=== PATIENT | female | born 1965 | race Caucasian/White ===

== ENCOUNTER 2023-08-29 15:07 | Emergency (ER) | payer OTHER, SELFPAY ==
--- NOTE | ~2023-08-29 | CT_ITS ---
EXAMINATION: CT abdomen pelvis w con DATE: 08/29/2023 18:04 INDICATION: LUQ pain TECHNIQUE: Computed tomography (CT) of the abdomen and pelvis was performed with 100 mL Omnipaque-350 intravenous contrast. Automated exposure control and iterative reconstruction technique were employe d. The dose-length product was 317.21 mGy-cm. COMPARISON: None. FINDINGS: Lower thorax: Unremarkable Liver: Normal. Biliary/Gallbladder: Gallbladder is normal. No bile duct dilation. Pancreas: No mass or duct dilation. Spleen: Normal. Adrenals:No mass. Kidneys: No suspicious mass, obstructing stone, or hydronephrosis. GI tract: Mild distal esophageal and gastric wall edema as can be seen with esophagitis/gastritis. Faust bmucosal fat in the left colon. Multiple loops of dilated small bowel in the left upper quadrant with out a single well-defined transition point. Uniform bowel wall enhancement without thickening. Normal appendix. Mesentery/Peritoneum: No ascites, mass, or free air. Retroperitoneum: No mass. Pelvis: Wall edema and inflammatory change in a poorly distended urinary bladder. Normal uterus and o varies. Soft Tissues: Multiple uncomplicated appearing fat-containing and small bowel containing ventral memo ias. Bones: No acute osseous finding. IMPRESSION: Mild esophagitis/gastritis. Dilated small bowel in the left upper quadrant may represent obstruction or ileus. Urinary bladder wall edema may represent cystitis in the appropriate clinical context. Reviewed, dictated and finalized at location [facility]. IMPRESSION: Mild esophagitis/gastritis. Dilated small bowel in the left upper quadrant may represent obstruction or ile us. Urinary bladder wall edema may represent cystitis in the appropriate clinical c ontext.
[2023-08-29 15:39] VITALS: BP 114/71; PULSE 69; RESP 18; TEMP 36.3; O2SAT 99
[2023-08-29 15:55] LABS: Basophils Percent Auto 0.3 % (0.2-1.2); Eosinophils Absolute Auto 0.1 K/mm3 (0-0.3); Eosinophils Percent Auto 1.5 % (0-4.4); Hematocrit 40.3 % (37.0-47.0); Hemoglobin 12.7 g/dL (12.0-15.0); Lymphocytes Absolute Auto 1.21 K/mm3 (0.9-3.2); Mean Corpuscular HGB Conc 31.5 g/dl (32-36); Mean Corpuscular Hemoglobin 32.9 pg (26-34); Mean Corpuscular Volume 104.4 fl (80-100); Monocytes Absolute Auto 0.4 K/mm3 (0.1-0.6); Monocytes Percent Auto 6.9 % (2.6-8.5); Neutrophils Absolute Auto 4.3 K/mm3 (1.3-6.7); Neutrophils Percent Auto 71.3 % (45.5-73.1); Platelet Count Result 266 k/mm3 (150-375); Red Blood Count 3.86 M/mm3 (4.2-5.4); Red Cell Distribution Width 14.4 % (11.5-14.5); White Blood Count 6.1 K/mm3 (4.5-10.0)
[2023-08-29 16:05] LABS: Alanine Aminotransferase 29 U/L (6-35); Albumin Level 4.7 g/dL (3.5-5.1); Alkaline Phosphatase 71 U/L (38-126); Anion Gap 7 mmol/L (8-16); Aspartate Amino Transferase 43 U/L (14-36); Bilirubin,Total 0.3 mg/dL (0.2-1.3); Blood Urea Nitrogen 18 mg/dL (7-17); Calcium 9.3 mg/dL (8.4-10.2); Carbon Dioxide 29 mmol/L (22-30); Chloride 110 mmol/L (98-107); Estimated Glomerular Filt Rate > 60; Glucose 111 mg/dL (65-110); Potassium 4.7 mmol/L (3.4-5.0); Sodium 146 mmol/L (137-145)
[2023-08-29] MEDS: ONDANSETRON INJ 4 MG/2 ML VIAL IV PUSH (17:32)
[2023-08-29 17:34] VITALS: BP 106/68; PULSE 60; RESP 17; O2SAT 98
[2023-08-29 17:46] LABS: Appearance Urine Cloudy (Clear); Bacteria Urine 1+ /hpf; Bilirubin Urine 1+ (Negative); Blood Urine 2+ (Negative); Color Urine Dark Yellow (Yellow); Glucose Urine UA Negative (Negative); Hyaline Casts Urine Present /lpf; Ketones Urine Trace mg/dL (Negative); Leukocyte Esterase Ur 1+ LEU/UL (Negative); Nitrate Urine Negative (Negative); Non Pathogenic Casts >20; Protein Urine 1+ mg/dL (Negative); Specific Grav Ur 1.023 (1.001-1.035); Squamous Epithelial Cell Urine Few /hpf (Few); WBC Urine 0-5 /hpf; pH Urine 6.5 (5.0-9.0)
[2023-08-29 17:47] LABS: Add Urine Microscopic? YES
--- NOTE | 2023-08-29 18:09 | ED.ABDPAIN ---
HPI - Abdominal Pain General Chief Complaint: Abdominal Pain Stated Complaint: abd pain Time Seen by Provider: 08/29/23 17:12 History of Present Illness HPI narrative: Patient is a 58-year-old female who presents ER with left-sided abdominal pain. Patient underwent colonoscopy 2 days ago but they could not complete it because she is medically cleared out. That evening she began having aching in her abdomen. Over the last day she has had worsening cramping and discomfort left upper quadrant. No fevers or chills or sweats. She does not think any biopsies were taken. Patient has history of perforated diverticulitis in the past and had a colonoscopy with wall before she had a takedown and a reanastomosis. Related Data Allergies Allergy/AdvReac Type Severity Reaction Status Date / Time codeine Allergy Itching Verified 08/29/23 17:25 morphine Allergy Hives Verified 08/29/23 17:24 PMFSH Past Medical History Medical History (Updated 08/29/23 @ 21:02 by Madhu Brennan MD) Anxiety Depression Diverticulitis SVT (supraventricular tachycardia) Surgical History Surgical History (Updated 08/29/23 @ 18:11 by Madhu Brennan MD) History of partial colectomy Exam Narrative: GENERAL: Well-appearing, well-nourished, and in no acute distress. HEAD: Normocephalic, atraumatic. ENT: Mucous membranes moist. NECK: Supple. CHEST: Clear to auscultation. No respiratory distress. HEART: Regular rate and rhythm. Normal peripheral pulses. ABDOMEN: Soft, mild tenderness in the left upper quadrant and epigastrium of the abdomen without guarding, nondistended, normal active bowel sounds. EXTREMITIES: Normal range of motion. No edema. SKIN: Warm, dry, no rash. NEURO: Alert and oriented x3. PSYCH: Normal mood and affect. Course Vital Signs Vital signs: Vital Signs Temperature 97.4 F L 08/29/23 15:39 Pulse Rate 69 08/29/23 15:39 Respiratory Rate 18 08/29/23 15:39 Blood Pressure 114/71 08/29/23 15:39 Pulse Oximetry 99 08/29/23 15:39 Oxygen Delivery Room Air 08/29/23 15:39 Temperature 97.4 F L 08/29/23 15:39 Pulse Rate 60 08/29/23 17:34 Respiratory Rate 17 08/29/23 17:34 Blood Pressure 106/68 08/29/23 17:34 Pulse Oximetry 98 08/29/23 17:34 Oxygen Delivery Room Air 08/29/23 15:39 MDM - Abdominal Pain Lab Data 08/29/23 15:49 08/29/23 15:49 Labs: Lab Results 08/29/23 08/29/23 Range/Units 15:49 17:19 WBC 6.1 (4.5-10.0) K/mm3 RBC 3.86 L (4.2-5.4) M/mm3 Hgb 12.7 (12.0-15.0) g/dL Hct 40.3 (37.0-47.0) % MCV 104.4 H (80-100) fl MCH 32.9 (26-34) pg MCHC 31.5 L (32-36) g/dl RDW 14.4 (11.5-14.5) % Plt Count 266 (150-375) k/mm3 MPV 9.0 (7.4-10.4) fl Immature Gran % (Auto) 0.0 (0-0.5) % Neut % (Auto) 71.3 (45.5-73.1) % Lymph % (Auto) 20.0 (18.3-44.2) % Loup % (Auto) 6.9 (2.6-8.5) % Eos % (Auto) 1.5 (0-4.4) % Baso % (Auto) 0.3 (0.2-1.2) % Lymph # (Auto) 1.21 (0.9-3.2) K/mm3 Loup # (Auto) 0.4 (0.1-0.6) K/mm3 Eos # (Auto) 0.1 (0-0.3) K/mm3 Baso # (Auto) 0.0 (0.0-0.1) K/mm3 Abs Immat Gran (auto) 0.00 (0.00-0.031) K/mm3 Absolute Neuts (auto) 4.3 (1.3-6.7) K/mm3 Absolute Nucleated RBC 0.0 (0.0-0.012) K/mm3 Nucleated RBC % 0.0 (0.0-0.2) % Sodium 146 H (137-145) mmol/L Potassium 4.7 (3.4-5.0) mmol/L Chloride 110 H (98-107) mmol/L Carbon Dioxide 29 (22-30) mmol/L Anion Gap 7 L (8-16) mmol/L BUN 18 H (7-17) mg/dL Creatinine 0.90 (0.7-1.0) mg/dL Estim Creat Clear Calc Not Reportable Estimated GFR > 60 (59 - ) Glucose 111 H (65-110) mg/dL Calcium 9.3 (8.4-10.2) mg/dL Total Bilirubin 0.3 (0.2-1.3) mg/dL AST 43 H (14-36) U/L ALT 29 (6-35) U/L Alkaline Phosphatase 71 (38-126) U/L Total Protein 8.0 (6.3-8.2) g/dL Albumin 4.7 (3.5-5.1) g/dL Urine Color Dark yellow (Yellow) Urine Appearance
[2023-08-29] MEDS: DICYCLOMINE HCL INJ 20 MG/2 ML VIAL IM (20:05)
[2023-08-29] MEDS: PANTOPRAZOLE SODIUM IV 40 MG VIAL IV PUSH (20:05)
== END 2023-08-29 21:19 | disposition home or self-care (01) ==
PROVIDERS: Emergency Provider Emergency Medicine; PCP Internal Medicine Infectious Disease
DX: K29.70 Gastritis, unspecified, without bleeding (principal)
CPT/HCPCS: 36415; 74177; 80053; 81001; 85025; 96372; 96374; 96375; 99284; C9113; J0500; J2405; Q9967

== ENCOUNTER 2023-10-08 13:34 | Outpatient (CLI) | payer OTHER, SELFPAY ==
[2023-10-08 17:54] LABS: Parathyroid Intact 48.3 pg/mL (7.5-53.5)
[2023-10-08 18:10] LABS: Free T4 Free Thyroxine 0.72 ng/mL (0.78-2.19); Vitamin D 25 Hydroxy 25.9 ng/mL
[2023-10-08 18:18] LABS: Alanine Aminotransferase 25 U/L (6-35); Albumin Level 4.5 g/dL (3.5-5.1); Alkaline Phosphatase 68 U/L (38-126); Anion Gap 8 mmol/L (8-16); Aspartate Amino Transferase 47 U/L (14-36); Bilirubin,Total 0.5 mg/dL (0.2-1.3); Blood Urea Nitrogen 18 mg/dL (7-17); Calcium 9.7 mg/dL (8.4-10.2); Carbon Dioxide 25 mmol/L (22-30); Chloride 109 mmol/L (98-107); Estimated Glomerular Filt Rate > 60; Glucose 79 mg/dL (65-110); Phosphorus 4.2 mg/dL (2.5-4.5); Sodium 142 mmol/L (137-145)
[2023-10-08 22:04] LABS: Hemoglobin A1C 4.9 % (<5.7)
[2023-10-10 22:04] LABS: Osmolality, Urine 512 mOsm/kg (50-1200)
[2023-10-11 03:00] LABS: Thyroid Peroxidase Antibodies 2 IU/mL (<9)
[2023-10-11 22:07] LABS: Thyrotropin Receptor Antibody <1.00 IU/L (<=2.00)
[2023-10-14 14:04] LABS: Thyroid Stimulating Immunoglob <89 % baseline (<140)
== END 2023-10-08 13:35 | disposition home or self-care (01) ==
LOC: ANHWCLAB 13:35
PROVIDERS: PCP Internal Medicine Infectious Disease; Visit Provider Internal Medicine
DX: R94.6 Abnormal results of thyroid function studies (principal); Z79.899 Other long term (current) drug therapy
CPT/HCPCS: 36415; 80053; 82306; 83036; 83519; 83935; 83970; 84100; 84439; 84443; 84445; 86376